=== PATIENT | female | born 1985 | race Caucasian/White ===

== ENCOUNTER → 2018-10-04 | Outpatient (CLI) | payer SELFPAY ==
[~2018-10-04] MED LIST: GADOBUTROL 7.5 MMOL/7.5 ML (GADAVIST) VIAL IV ONE
--- NOTE | 2018-10-04 15:33 | Diagnostic Imaging Report ---
PROCEDURE: MR imaging of the brain with and without contrast. TECHNIQUE: Multiplanar, multisequence MR imaging of the brain was performed with and without contrast. INDICATION: Headaches. Dizziness. Nausea. COMPARISON: None. FINDINGS: No abnormal intracranial signal or enhancement. No restricted water diffusion or hemosiderin deposition. Normal morphology including the major midline structures, sella, posterior fossa and cerebellar pontine angle. No hydrocephalus or extra-axial fluid collections. Normal intracranial flow voids. The orbits are unremarkable on this nondedicated exam. Large mucus retention cyst occupies most of the right maxillary sinus. The mastoids are clear. Normal bone marrow signal. IMPRESSION: 1. Normal MRI of the brain without and with IV contrast. 2. Mucus retention cyst occupies most of the right maxillary sinus. Dictated by: Dictated on workstation # [id number]
== END ==
LOC: RAD 14:15
PROVIDERS: ATTEND Nurse Practitioner Primary Care
DX: G43.909 Migraine, unspecified, not intractable, without status migrainosus (principal); M54.2 Cervicalgia; J34.1 Cyst and mucocele of nose and nasal sinus; R11.0 Nausea
CPT/HCPCS: 70553

== ENCOUNTER → 2019-04-08 | Outpatient (CLI) | payer SELFPAY ==
--- NOTE | 2019-04-08 13:49 | Diagnostic Imaging Report ---
PROCEDURE: CT urinary tract, rule out kidney stone. TECHNIQUE: Multiple contiguous axial images were obtained through the abdomen and pelvis without the use of intravenous contrast. Auto Exposure Controls were utilized during the CT exam to meet ALARA standards for radiation dose reduction. INDICATION: Left lower quadrant abdominal pain. COMPARISON: None. FINDINGS: Included portions of the lung bases show 4-5 mm micronodule within the anterolateral margins of the left lower lobe (image 16, series 2). CT ABDOMEN: Kidneys have an unremarkable noncontrast CT appearance. No renal or ureteral calculi are identified on either side. Additionally, there is no hydronephrosis or other evidence of obstruction. Liver is diffusely hypodense consistent with background hepatic steatosis. Otherwise, the adrenal glands, spleen, and pancreas have an unremarkable noncontrast CT appearance. Small bowel loops are nondistended. Normal appendix is identified. There is no loculated fluid collection, free fluid, nor free air within the abdomen. No abnormal mesenteric or retroperitoneal adenopathy is seen. Osseous structures show no acute abnormalities. CT PELVIS: There is trace free fluid. There is no loculated fluid collection or free air within the pelvis. Note is also made of prominent left adnexal cystic lesion that measures 3.8 x 5.3 cm; likely ovarian. There is no other loculated fluid collection or free air within the pelvis. No abnormal adenopathy is seen. Urinary bladder is unopacified. No calculi are seen within the urinary bladder. Osseous structures show no acute abnormalities. IMPRESSION: 1. Unremarkable noncontrast CT of the kidneys and bilateral renal collecting systems. 2. Large left adnexal cyst; likely ovarian in nature. 3. Trace free fluid within the pelvis; likely physiologic. 4. Hepatic steatosis. 5. Small micronodule within the included portions of the left lower lobe. If patient is in a high-risk category, such as history of smoking, may want to consider one-year follow-up to ensure stability. Dictated by: Dictated on workstation # [id number]
== END ==
LOC: RAD 13:08
PROVIDERS: ATTEND Nurse Practitioner Primary Care
DX: K76.0 Fatty (change of) liver, not elsewhere classified (principal); N23 Unspecified renal colic; E27.8 Other specified disorders of adrenal gland; R91.1 Solitary pulmonary nodule
CPT/HCPCS: 74176

== ENCOUNTER 2023-04-19 15:00 | Emergency (ER) | payer BC, MEDICAID ==
[~2023-04-19] VITALS: Ht 162.5 cm; Wt 85.7 kg
--- NOTE | 2023-04-19 15:25 | ED Upper Extremity ---
General Chief Complaint: Upper Extremity Stated Complaint: SWELLING IN RT HAND Nursing Triage Note: PT AMB TO [facility] WITH CC OF EXTREMITY NUMBNESS X 5 MONTHS AND R HAND SWELLING SINCE 04/17. PT DENIES INJURY. Source: patient Exam Limitations: no limitations History of Present Illness Date Seen by Provider: Apr 19, 2023 Time Seen by Provider: 15:12 Initial Comments 37-year-old female presents for right hand pain. Symptoms started Monday after she was pushing a broom most of the day. She also has some numbness in her hand if she holds her elbow in a certain manner. She denies any known injury. No redness but she states she did have some swelling after that day. This is seemingly resolved. All other systems reviewed and negative except documented per HPI. Voice recognition software was used to help create this chart Allergies and Home Medications Allergies Coded Allergies: No Known Drug Allergies (Unverified , 11/19/12) Patient Home Medication List Home Medication List Reviewed: Yes Review of Systems Constitutional: see HPI Past Fmdktul-[id number]-Cnpfaj Hx Patient Social History Tobacco Use?: No Smoking Status: Former Smoker Substance use?: Yes Substance type: Marijuana Substance frequency: Daily Alcohol Use?: No Seasonal Allergies Seasonal Allergies: No Past Medical History Surgery/Hospitalization HX: ANXIETY, HIGH COLESTEROL, HTN, Kidney Stones Gout Anxiety Adverse Reaction/Blood Tranf: No Physical Exam Vital Signs Vital Signs - First Documented 04/19/23 15:08 Temp 36.9 Pulse 72 Resp 16 B/P (MAP) 128/85 (99) Pulse Ox 100 O2 Delivery Room Air Capillary Refill : Less Than 3 Seconds Height, Weight, BMI Height: '" Weight: lbs. oz. kg; 32.00 BMI Method:Stated General Appearance: WD/WN, no apparent distress HEENT: normal ENT inspection, pharynx normal Neck: non-tender, supple Cardiovascular: regular rate, rhythm, no murmur Shoulder: normal inspection, non-tender, no evidence of injury Elbow/Forearm: normal inspection, non-tender, no evidence of injury Wrist: Yes normal inspection, Yes non-tender, Yes no evidence of injury Hand: bone tenderness (Tenderness palpation the ulnar aspect of the right hand proximally. Pain is worse with flexion and extension against resistance. Neurovascular and sensory intact.) Skin: normal color, warm/dry Progress/Results/Core Measures Results/Orders Vital Signs/I&O 04/19/23 15:08 Temp 36.9 Pulse 72 Resp 16 B/P (MAP) 128/85 (99) Pulse Ox 100 O2 Delivery Room Air Blood Pressure Mean: 99 Departure Communication (Admissions) Patient is hemodynamically stable, neurovascular and sensory intact. No known injury. No indication for imaging. Symptoms most consistent with tendinitis. Discharged in stable condition with supportive care. Impression Primary Impression: Right hand pain Disposition: HOME, SELF-CARE Condition: Stable Departure-Patient Inst. Referrals: JIMY CRONIN APRN (PCP/Family) Primary Care Physician Patient Instructions: Hand Pain Add. Discharge Instructions: As discussed I think you have tendinitis. Use anti-inflammatory medicines alt ernate with Tylenol as needed for pain. Use a splint as needed. Return to the emergency department for any severe concerns. All discharge instructions reviewed with patient and/or family. Voiced understanding. GUANACO FRANKLIN DO Apr 19, 2023 15:25
[2023-04-19 15:30] VITALS: BP 128/85
== END 2023-04-19 15:30 | disposition home or self-care (01) ==
LOC: EDUNIT# 15:00 → ER 15:04
DX: M79.641 Pain in right hand (principal); Z87.891 Personal history of nicotine dependence
CPT/HCPCS: 99281